=== PATIENT | female | born 1995 | race Two or more races ===

== ENCOUNTER 2025-04-27 12:20 | Emergency (ER) | payer MEDICAID, SELFPAY ==
[2025-04-27 12:24] VITALS: PULSE 80; RESP 16; O2SAT 98; BMI 39.4
[2025-04-27 12:25] VITALS: BP 109/70; PULSE 83; RESP 16; TEMP 36.6; O2SAT 100
--- NOTE | 2025-04-27 13:36 | PD.EDRME ---
Rapid Medical Screening Exam RME Arrival date/time: 04/27/25 12:20 This is a 30-year-old female that comes into the emergency room with complaints of nausea, vomiting and abdominal pain that started yesterday. Patient states that she thinks she might have food poisoning. Patient states she ate [id number] yesterday. Patient was brought in by ambulance. Patient denies any other sick contacts. Patient reports history of tubal ligation. I have greeted and performed a focused initial assessment of this patient. Initial appropriate labs ordered at this time. A comprehensive ED assessment and evaluation of the patient and analysis of all test and completion of medical decision making process will be conducted by additional ED provider. Chief Complaint: Nausea/Vomiting/Diarrhea Time Seen by Provider: 04/27/25 12:44 Vital signs: Vital Signs Temperature 97.8 F 04/27/25 12:25 Pulse Rate 83 04/27/25 12:25 Respiratory Rate 16 04/27/25 12:25 Blood Pressure 109/70 04/27/25 12:25 Pulse Oximetry (%) 100 04/27/25 12:25 Oxygen Delivery Method Room Air 04/27/25 12:25
[2025-04-27 14:01] LABS: Basophils # (Auto) 0.0 Thou/mm3 (0.0-0.2); Basophils % (Auto) 0 % (0-2.5); Eosinophils # (Auto) 0.0 Thou/mm3 (0.0-0.5); Eosinophils % (Auto) 0 % (0-10); Hematocrit 40.9 % (36.0-46.0); Hemoglobin 13.0 g/dL (12.0-16.0); Immature Granulocytes Auto 0.03 Thou/mm3 (0.00-0.00); Lymphocytes # (Auto) 1.2 Thou/mm3 (1.0-4.8); Lymphocytes % (Auto) 11 % (10-50); Mean Corpuscular HGB Conc 31.8 g/dl (31.0-37.0); Mean Corpuscular Hemoglobin 25.6 pg (25.0-35.0); Mean Corpuscular Volume 81 fL (80-100); Monocytes # (Auto) 0.5 Thou/mm3 (0.0-0.8); Monocytes % (Auto) 5 % (0-12); Neutrophils # (Auto) 8.9 Thou/mm3 (1.8-7.7); Neutrophils % (Auto) 83 % (37-80); Nucleated Red Blood Cell # 0.00 Thou/mm3 (0.00-0.00); Nucleated Red Blood Cell % 0 /100 WBC (0); Platelet Count 408 Thou/mm3 (140-440); RDW Standard Deviation 42.5 fL (36.4-46.3); Red Blood Count 5.07 Miln/mm3 (4.00-5.20); White Blood Count 10.7 Thou/mm3 (3.6-11.0)
[2025-04-27 14:20] LABS: Alanine Aminotransferase 13 U/L (10-49); Albumin, Serum 4.6 gm/dL (3.5-5.0); Albumin/Globulin Ratio 1.6 (1.2-2.2); Alkaline Phosphatase 118 U/L (46-116); Anion Gap 9 (7-16); Aspartate Amino Transferase 16 U/L (0-34); BUN/Creatinine Ratio 15 Ratio (12-20); Bilirubin,Total 0.4 mg/dL (0.3-1.2); Blood Urea Nitrogen 9 mg/dL (9-23); Calcium 9.2 mg/dL (8.3-10.6); Calcium (Corrected) 9.2 mg/dL (8.5-10.1); Carbon Dioxide 25.8 mMol/L (20.0-31.0); Chloride 104 mMol/L (98-107); Creatinine (Component) 0.6 mg/dL (0.6-1.3); Estimated Creatinine Clearance 159.9 mL/min (>60); Globulin 2.8 gm/dL (2.3-3.5); Glucose 113 mg/dL (74-106); Lipase 30 U/L (12-53); Osmolality,Calculated 277 (275-295); Potassium 4.2 mMol/L (3.4-5.1); Sodium 139 mMol/L (136-145); Total Protein 7.4 gm/dL (5.7-8.2); eGFR > 60 See Note
[2025-04-27 14:22] LABS: Influenza A Ag Negative; Influenza B Ag Negative
--- NOTE | 2025-04-27 17:03 | PC.NURSE ---
Addendum entered by Akila Santoyo RN 04/27/25 17:41: @1740 - PT CALLED FROM ED LOBBY & ED MAIN ENTRANCE AT THIS TIME FOR LAST CALL; NO ANSWER. PT ELOPED. Addendum entered by Akila Santoyo RN 04/27/25 17:29: @1728 - PT CALLED FROM ED LOBBY & ED MAIN ENTRANCE AGAIN AT THIS TIME; NO ANSWER. Original Note: @1703 - PT CALLED FROM ED LOBBY & ED MAIN ENTRANCE AT THIS TIME; NO ANSWER.
== END 2025-04-27 17:41 | disposition left against medical advice (07) ==
PROVIDERS: Nurse Practitioner Family; Emergency Provider Emergency Medicine; PCP Family Medicine
DX: R11.2 Nausea with vomiting, unspecified (principal); R19.7 Diarrhea, unspecified
CPT/HCPCS: 36415; 80053; 81001; 81025; 83690; 85025; 87502; 87811; 99283